=== PATIENT | female | born 1975 | race African-American/Black ===

== ENCOUNTER 2018-05-01 21:55 | Emergency (ER) | payer OTHER ==
[2018-05-01 22:18] VITALS: BP 143/93; PULSE 86; TEMP 98.4; BMI 45.1
--- NOTE | 2018-05-01 23:14 | PDOC ---
History of Present Illness - General History Source: Patient Exam Limitations: No Limitations - History of Present Illness Initial Comments: 05/01/18 23:15 The patient is a 42 year old female with a past medical history of dysfunctional uterine bleeding, admitted in February 2018 for transfusion, on progesterone, and several uterine biopsies which were normal, who presents to the emergency department for evaluation of a 1 month history of worsening vaginal bleeding, palpitations, and syncopal episode at work tonight. Patient states she knows her blood may be low as these symptoms have occurred in the past. Denies chest pain, shortness of breath, headache, nausea, vomiting, fevers, chills, diarrhea, and constipation. Allergies: Penicillins Social History: No re Surgical History: x2 <Xiomara Stevens - Last Filed: 05/01/18 23:15> <Marlena Pires - Last Filed: 05/02/18 02:25> - General Chief Complaint: Vaginal Bleeding Stated Complaint: VAGINAL BLEEDING Time Seen by Provider: 05/01/18 22:48 Past History <Xiomara Stevens - Last Filed: 05/01/18 23:15> - Past Medical History COPD: No - Suicide/Smoking/Psychosocial Hx Smoking History: Never smoked Have you smoked in the past 12 months: No Information on smoking cessation initiated: No Hx Alcohol Use: No Drug/Substance Use Hx: No <Marlena Pires - Last Filed: 05/02/18 02:25> - Past Medical History Allergies/Adverse Reactions: Allergies Allergy/AdvReac Type Severity Reaction Status Date / Time Penicillins Allergy Verified 05/01/18 22:19 Review of Systems - Review of Systems Able to Perform ROS?: Yes Comments:: 05/01/18 23:15 CONSTITUTIONAL: Absent: fever, chills, diaphoresis, generalized weakness, malaise, loss of appetite HEENT: Absent: rhinorrhea, nasal congestion, throat pain, throat swelling, difficulty swallowing, mouth swelling, ear pain, eye pain, visual Changes CARDIOVASCULAR: (+)syncope. (+) palpitations Absent: chest pain, irregular heart rate, lightheadedness, peripheral edema RESPIRATORY: Absent: cough, shortness of breath, dyspnea with exertion, orthopnea, wheezing, stridor, hemoptysis GASTROINTESTINAL: Absent: abdominal pain, abdominal distension, nausea, vomiting, diarrhea, constipation, melena, hematochezia GENITOURINARY: (+)Vaginal bleeding. Absent: dysuria, frequency, urgency, hesitancy, hematuria, flank pain, genital pain MUSCULOSKELETAL: Absent: myalgia, arthralgia, joint swelling SKIN: Absent: rash, itching, pallor HEMATOLOGIC/IMMUNOLOGIC: Absent: easy bleeding, easy bruising, lymphadenopathy, frequent infections ENDOCRINE: Absent: unexplained weight gain, unexplained weight loss, heat intolerance, cold intolerance NEUROLOGIC: (+)Dizziness. Absent: headache, focal weakness or paresthesias, unsteady gait, seizure, mental status changes, bladder or bowel incontinence PSYCHIATRIC: Absent: anxiety, depression, suicidal or homicidal ideation, hallucinations. <Xiomraa Stevens - Last Filed: 05/01/18 23:15> *Physical Exam - Vital Signs Last Vital Signs Temp Pulse Resp BP Pulse Ox 98.4 F 86 16 143/93 100 05/01/18 22:16 05/01/18 22:16 05/01/18 22:16 05/01/18 22:16 05/01/18 22:16 - Physical Exam Comments: 05/01/18 23:15 GENERAL: Well developed, well nourished. Awake and alert. No acute distress. HEENT: Normocephalic, atraumatic. PERRLA, EOMI. No conjunctival pallor. Sclera are non- icteric. Moist mucous membranes. Oropharynx is clear. NECK: Supple. Full ROM. No JVD. Carotid pulses 2+ and symmetric, without bruits. No thyromegaly. No lymphadenopathy. CARDIOVASCULAR: (+)Tachycardic. No murmurs, rubs, or gallops. Distal pulses are 2+ and symmetric. PULMONARY: No evidence of respiratory distress. Lungs clear to auscultation bilaterally. No wheezing, rales or rhonchi. ABDOMINAL: Soft. Non-tender. Non-distended. No rebound or guarding. No organomegaly. Normoactive bowel sounds. PELVIC: (+)Vaginal bleeding MUSCULOSKELETAL Normal range of motion at all joints. No bony deformities or tenderness. No CVA tenderness. EXTREMITIES: No cyanosis. No clubbing. No edema. No calf tenderness. SKIN: Warm and dry. Normal capillary refill. No rashes. No jaundice. NEUROLOGICAL: Alert, awake, appropriate. Cranial nerves 2-12 intact. No deficits to light touch and temperature in face, upper extremities and lower extremities. No motor deficits in the in face, upper extremities and lower extremities. Normoreflexic in the upper and lower extremities. Normal speech. Toes are down- going bilaterally. Gait is normal without ataxia. PSYCHIATRIC: Cooperative. Good eye contact. Appropriate mood and affect. <Xiomara Stevens - Last Filed: 05/01/18 23:15> - Vital Signs Last Vital Signs Temp Pulse Resp BP Pulse Ox 98.4 F 86 16 143/93 100 05/01/18 22:16 05/01/18 22:16 05/01/18 22:16 05/01/18 22:16 05/01/18 22:16 <Marlena Pires - Last Filed: 05/02/18 02:25> Moderate Sedation - Procedure Monitoring Vital Signs: Procedure Monitoring Vital Signs Temperature 98.4 F 05/01/18 22:16 Pulse Rate 86 05/01/18 22:16 Respiratory Rate 16 05/01/18 22:16 Blood Pressure 143/93 05/01/18 22:16 O2 Sat by Pulse Oximetry (%) 100 05/01/18 22:16 <Xiomara Stevens - Last Filed: 05/01/18 23:15> - Procedure Monitoring Vital Signs: Procedure Monitoring Vital Signs Temperature 98.4 F 05/01/18 22:16 Pulse Rate 86 05/01/18 22:16 Respiratory Rate 16 05/01/18 22:16 Blood Pressure 143/93 05/01/18 22:16 O2 Sat by Pulse Oximetry (%) 100 05/01/18 22:16 <Marlena Pires - Last Filed: 05/02/18 02:25> ED Treatment Course - LABORATORY CBC & Chemistry Diagram: 05/01/18 23:30 <Marlena Pires - Last Filed: 05/02/18 02:25> Medical Decision Making - Medical Decision Making 05/02/18 02:20 The patient's EKG is normal sinus rhythm at 76 bpm. She has no shortness of breath, chest pain, Hemoglobin is 9.4 and her platelets are within normal limits. Hematocrit is about 30. 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 She states that she wanted to have D&C done by her cna instructor and not placed her on hormonal treatment. I will give her some [employer]ST[employer] referrals imp dysfunction vaginal bleeding plan pt is to take her iron tablets ,f/u with mammography technician <Marlena Pires - Last Filed: 05/02/18 02:25> *DC/Admit/Observation/Transfer - Attestations Scribe Attestion: 05/01/18 23:16 Documentation prepared by Xiomara Stevens, acting as medical sociologist for Marlena Pires MD. <Xiomara Stevens - Last Filed: 05/01/18 23:15> <Marlena Pires - Last Filed: 05/02/18 02:25> Diagnosis at time of Disposition: Vaginal bleeding Anemia Qualifiers: Anemia type: other cause Other causes of anemia: other cause, not classified Qualified Code(s): D64.89 - Other specified anemias
[2018-05-01 23:43] LABS: BASO % 0.9 % (0-2.0); EOS % 4.1 % (0-4.5); HEMATOCRIT 29.9 % (32.4-45.2); HEMOGLOBIN 9.4 GM/dL (10.7-15.3); LYMPH % 23.7 % (8-40); MCH 23.4 pg (25.7-33.7); MCHC 31.6 g/dl (32.0-36.0); MEAN CELL VOLUME 74.2 fl (80-96); MEAN PLT VOLUME 9.1 fl (7.5-11.1); MONO % 7.6 % (3.8-10.2); NEUT % 63.7 % (42.8-82.8); PLATELET COUNT 328 K/MM3 (134-434); RBC 4.03 M/mm3 (3.60-5.2); RDW 22.7 % (11.6-15.6); WHITE BLOOD COUNT 9.2 K/mm3 (4.0-10.0)
[2018-05-02 03:14] LABS: ANISOCYTOSIS 2+; MACROCYTOSIS 0; OVALOCYTE 1+; PLATELET ESTIMATE NORMAL; TEAR DROP CELLS 1+
--- NOTE | 2018-05-02 12:07 | EKG ---
Test Reason : Blood Pressure : / mmHG Vent. Rate : 076 BPM Atrial Rate : 076 BPM P-R Int : 142 ms QRS Dur : 096 ms QT Int : 408 ms P-R-T Axes : 065 036 -01 degrees QTc Int : 459 ms POOR DATA QUALITY, INTERPRETATION MAY BE ADVERSELY AFFECTED NORMAL SINUS RHYTHM NONSPECIFIC T WAVE ABNORMALITY ABNORMAL ECG NO PREVIOUS ECGS AVAILABLE Confirmed by JEMMA TRINH, BECKI ([id number]) on 05/02/2018 12:07:38 PM Referred By: Confirmed By:BECKI EASTON MD
== END 2018-05-02 04:29 | disposition home or self-care (01) ==
LOC: JER 21:55
DX: N93.8 Other specified abnormal uterine and vaginal bleeding (principal); D64.89 Other specified anemias
CPT/HCPCS: 36415; 85025; 93005; 93010; 99281-25

== ENCOUNTER 2018-05-17 08:44 | Emergency (ER) | payer OTHER ==
[2018-05-17 08:56] VITALS: BMI 39.2
--- NOTE | 2018-05-17 09:25 | PDOC ---
History of Present Illness - General Chief Complaint: Vaginal Bleeding Stated Complaint: VAGINAL BLEEDING Time Seen by Provider: 05/17/18 09:18 History Source: Patient, Old Records Exam Limitations: No Limitations - History of Present Illness Initial Comments: HPI: 42 y/o female presenting to [facility] complaining of three months of heavy vingal bleeding. States she uses approx. 5-6 pads per day for the past three months. Was concerned this morning after finding blood in her bed. Endorses two days of exertional fatigue with chest discomfort in center of chest, as well as pale eyes and palms. Denies syncope. Has a h/o of dysfunctional uterine bleeding. Reportedly underwent biopsy found to be normal by OBGYN. Reports normal PAP smear last year. No h/o of abnormal PAP smears. Expressed frustration that the obgyn will not remove the uterus. Was evaluated in this department for similar symptoms on 01 May 2018. Found to not be anemic. Was discharged with OBGYN f/u but pt was unable to find the telephone number to schedule the appointment. Further endorses a h/o of anemia requiring blood transfusion in February 2018. OBGYN Hx: PCP: [facility] Family Hx: - Denies h/o ovarian or other types of cancers Medical Hx: - HTN - Asthma - Dysfunctional Uterine Bleeding Surgical Hx: - Past History - Past Medical History Allergies/Adverse Reactions: Allergies Allergy/AdvReac Type Severity Reaction Status Date / Time Penicillins Allergy Verified 05/01/18 22:19 Home Medications: Ambulatory Orders Ferrous Sulfate [Iron] 325 mg PO DAILY 05/17/18 Anemia: Yes Asthma: Yes COPD: No Disorders: Yes - Surgical History Abdominal Surgery: Yes () Gastric Stapling: No - Immunization History Immunization Up to Date: No - Suicide/Smoking/Psychosocial Hx Smoking History: Current every day smoker Have you smoked in the past 12 months: Yes Information on smoking cessation initiated: No Hx Alcohol Use: No Drug/Substance Use Hx: No Review of Systems - Review of Systems Able to Perform ROS?: Yes Comments:: In addition to that documented in the HPI above, the additional ROS was obtained : Constitutional: Endorses single episode of subjective fever and chills two days ago that resolved with Tylenol Head: Denies vision changes ENMT: Denies sore throat CV: Per HPI Resp: Per HPI. Denies coughing, sneezing, or wheezing GI: Denies vomiting or diarrhea : Denies painful urination MSK: Denies recent trauma Skin: Denies new rashes Neuro: Denies new numbness or tingling or weakness Endocrine: Denies polyuria Heme: Denies bleeding or bruising *Physical Exam - Vital Signs Last Vital Signs Temp Pulse Resp BP Pulse Ox 97.8 F 97 H 18 115/57 L 100 05/17/18 08:54 05/17/18 08:54 05/17/18 08:54 05/17/18 08:54 05/17/18 08:54 - Physical Exam Comments: Constitutional: Well-developed, well-nourished adult female in no acute distress or obvious discomfort. Obese body habitus. Found sitting upright on ADMITTED ATTORNEYS table. Alert and oriented x4. Answered all questions appropriately and completely. Speech was non-labored, non-pressured. Observed walking through the department unassisted without obvious difficulty. Head: Normocephalic. No obvious external signs of trauma. Eyes: Sclerae white. Conjunctiva pale but moist. Ears: Hearing grossly intact. Nose: No nasal discharge. Throat: Pale sublingual mucosa.No inflammation, swelling, exudate, or lesions. Neck: Supple, trachea is midline. Cardiovascular / Chest: Regular rate and regular rhythm. No murmur, rubs, clicks, or gallops. Peripheral pulses: radial pulses full. Respiratory: Breathing unlabored. Equal chest rise and fall. Clear to auscultation bilaterally. No stridor, no wheezing, no rhonchi. Gastrointestinal: abdomen is soft, non-tender, non-distended. Post surgical scar to midline. Neuro: Alert and oriented. Moving all four extremities spontaneously. Gait normal. Skin: Warm, dry, and intact. Pale palms bilaterally. : No R or L CVA tenderness. Psych: Affect: appropriate. Mood: normal. Female Pelvic: External genitalia unremarkable. Speculum exam revealed pooling of katherine blood. Vaginal wall mucosa is unremarkable. Cervix visualized with protrusion of small clot. Bimanual exam revealed a closed cervical os without cervical motion tenderness, adnexal tenderness or any masses appreciated. ED Attending chaperoned exam. ED Treatment Course - LABORATORY CBC & Chemistry Diagram: 05/17/18 18:40 Medical Decision Making - Medical Decision Making *Reviewed vital signs, nursing notes, and prior visit documentation (if available). 42 y/o female presenting with three months of heavy vaginal bleeding with acute symptoms of exertional fatigue and substernal chest pain. Has not followed up with OBGYN as previously counseled. Afebrile. Vitals unremarkable for tachycardia or hypotension. Pale mucosal membranes on exam. Suspect likely symptomatic anemia secondary to chronic blood loss. Will obtain T/S, CBC, Coags , and serum . Anticipate transfusion. Will not explore further with imaging as pt has a documented h/o of similar episodes and reports extensive outpatient workup. CBC revealed anemia <7. Suspect secondary to chronic blood loss. Ordered 2 units after pt consented to transfusion. Repeat CBC after 2 PRBCs was improved. Pt clinically improved with pink mucosal membranes. Reports feeling better. Will refer to Dr. Donaldson for outpatient follow up. Called office and was informed the practice accepted pts insurance. Pt already taking iron supplements; encouraged to continue. Discussed physical exam findings and laboratory results with pt. Answered all questions. Provided return precautions. Pt expressed verbal understanding and agreement with plan to discharge home with outpatient follow up. *DC/Admit/Observation/Transfer Diagnosis at time of Disposition: Symptomatic anemia, Vaginal bleeding, abnormal, Patient consents to blood transfusion, Encounter for blood transfusion - Discharge Dispostion Disposition: HOME Condition at time of disposition: Good Decision to Admit order: No - Referrals Referrals: Nichole Donaldson MD [Staff Physician] - - Patient Instructions Printed Discharge Instructions: DI for Vaginal Bleeding Additional Instructions: You were seen today for vaginal bleeding for the past three months. You were found to be anemic today, so you were given two units of blood. Your repeat blood count was improved. You need to follow up with an OBGYN for further evaluation of this bleeding. I have placed a referral for you to follow up with Dr. Donaldson. You will need to call to make an appointment. The telephone number is . Try to make the appointment as soon as possible. Go to the nearest emergency department if your condition worsens or you feel like you need additional emergency evaluation. Print Language: ROMANIAN - Post Discharge Activity Forms/Work/School Notes: Back to Work
[2018-05-17 10:14] LABS: BASO % 0.8 % (0-2.0); EOS % 3.4 % (0-4.5); HEMATOCRIT 21.6 % (32.4-45.2); LYMPH % 24.6 % (8-40); MCH 23.1 pg (25.7-33.7); MCHC 30.8 g/dl (32.0-36.0); MEAN CELL VOLUME 74.8 fl (80-96); MONO % 9.3 % (3.8-10.2); NEUT % 61.9 % (42.8-82.8); PLATELET COUNT 364 K/MM3 (134-434); RBC 2.88 M/mm3 (3.60-5.2); RDW 19.3 % (11.6-15.6); WHITE BLOOD COUNT 11.7 K/mm3 (4.0-10.0)
[2018-05-17 10:22] LABS: HEMOGLOBIN 6.6 GM/dL (10.7-15.3)
[2018-05-17 10:28] LABS: INR 1.08 (0.83-1.09); PROTHROMBIN TIME (PATIENT) 12.7 SEC (9.7-13.0)
--- NOTE | 2018-05-17 10:47 | PDOC ---
Attending Attestation - Resident Resident Name: Russell Crawford - ED Attending Attestation I have performed the following: I have examined & evaluated the patient, The case was reviewed & discussed with the resident, I agree w/resident's findings & plan - HPI HPI: 05/17/18 10:54 42 year old female, with past medical history of dysfunctional uterine bleeding , HTN, asthma, obesity presenting with intermittent vaginal bleeding x 3 months now with passage of clots, lightheadedness, palpitations and shortness of breath. Has seen PROFESSOR OF RHETORIC back in 02/2018 where she had endometrial biopsy and pelvic sono, which were unremarkable. She has requested hysterectomy, but PROFESSOR OF RHETORIC has declined, not on ocps. Last seen here 1 month ago in the ED, workup neg, and given PROFESSOR OF RHETORIC consult, but not formally followed up with new physicians. - Physicial Exam PE: 05/17/18 10:54 NAD, obese female, EOMI/PERRL, MMM, pale conjunctiva, anicteric; neck supple. lungs clear, RRR, abdomen soft nontender. Midline vertical C section scar. QUINONES x4, no focal neuro deficits. No peripheral edema. pale color for ethnicity, WWP. Pelvic exam performed with resident, I as delimer. Blood in vault, no lesions , cervix and adnexa nontender. - Medical Decision Making 05/17/18 10:55 See HPI for details Vital signs reviewed, wnl. Prior notes reviewed, including admissions, discharges and consultations. laboratory results and imaging reviewed, basic labs notable for normal coags. anemia noted, Hb 6.6, hcg 21.6 2/2 DUB. no pelvic sx, no abdominal sx, defer imaging as she has had full workup EKG normal sinus rhythm 89 bpm, no interval abnormalities, narrow QRS, ST and T wave segments and morphology normal. Nonspecific T wave abnormalities ED course - transfuse 2 units prbc for symptomatic anemia. observed in the ED , no acute events, feels improved, color improved. - PROFESSOR OF RHETORIC follow up as outpatient for definitive management of DUB, referrals given. iron supplements advised. Dispo: Pt informed of my clinical impression, treatment recommendations and disposition plan. All questions answered to patient's satisfaction and expressed understanding and comfort with this. Reasons for returning to the ED sooner discussed including new or persistent/worsening symptoms with the patient otherwise, follow up with primary care physician. At the time of discharge, the patient is alert, clinically improved, tolerating po and verbalizes understanding of instructions, satisfied with the care received and felt comfortable with the plan. Patient does not suffer from an acute life- threatening medical condition at this time she is safe for outpatient follow- up. 05/17/18 10:57 05/17/18 15:39
--- NOTE | 2018-05-17 14:14 | EKG ---
Test Reason : Blood Pressure : / mmHG Vent. Rate : 089 BPM Atrial Rate : 089 BPM P-R Int : 144 ms QRS Dur : 078 ms QT Int : 376 ms P-R-T Axes : 071 047 002 degrees QTc Int : 457 ms NORMAL SINUS RHYTHM NONSPECIFIC T WAVE ABNORMALITY ABNORMAL ECG WHEN COMPARED WITH ECG OF 02-MAY-2018 01:28, NO SIGNIFICANT CHANGE WAS FOUND Confirmed by MARCIO MCKEON MD ([id number]) on 05/17/2018 2:13:58 PM Referred By: Confirmed By:MARCIO MCKEON MD
[2018-05-17 19:08] LABS: BASO % 0.4 % (0-2.0); EOS % 3.5 % (0-4.5); HEMATOCRIT 27.3 % (32.4-45.2); HEMOGLOBIN 8.7 GM/dL (10.7-15.3); LYMPH % 20.2 % (8-40); MCH 25.2 pg (25.7-33.7); MCHC 31.8 g/dl (32.0-36.0); MEAN CELL VOLUME 79.3 fl (80-96); MEAN PLT VOLUME 8.8 fl (7.5-11.1); MONO % 8.9 % (3.8-10.2); PLATELET COUNT 285 K/MM3 (134-434); RBC 3.45 M/mm3 (3.60-5.2); RDW 18.3 % (11.6-15.6); WHITE BLOOD COUNT 15.9 K/mm3 (4.0-10.0)
[2018-05-17 19:16] VITALS: BP 133/71; PULSE 93; TEMP 98.8
== END 2018-05-17 19:25 | disposition home or self-care (01) ==
LOC: JER 08:44
PROC: 30233N1 Transfusion of Nonautologous Red Blood Cells into Peripheral Vein, Percutaneous Approach (ICD-10-PCS; principal; 2018-05-17)
DX: D50.0 Iron deficiency anemia secondary to blood loss (chronic) (principal)
CPT/HCPCS: 36415; 36430; 36511; 84703; 85025; 85610; 85730; 86850; 86900; 86901; 86922; 93005; 93010; 99284-25; P9038; P9058